=== PATIENT | male | born 1990 | race Caucasian/White ===

== ENCOUNTER 2016-07-22 21:23 | Emergency (ER) | payer OTHER ==
[2016-07-22 21:40] VITALS: BP 127/62
--- NOTE | 2016-07-22 22:13 | UC ---
Upper Extremity HPI - HPI Summary HPI Summary: The patient comes in today for: 1. Left elbow injury: Onset: six days ago. Palliative/provocative: Touch makes it worse. Quality: dull Region: Left olecranon area. Severity: 0/10 at rest, and 3/10 with hitting it. Time: Comes and goes depending on activity. Associated symptoms: FEvers: None. Previous injury: None other than occasional contusion. Numbness or weakness: None. Full range of motion: Present. Home treatment: None other than a bandage. Drainage: brown--not pus. Event: he was hit in the elbow during a [employer] game. * - History of Current Complaint Chief Complaint: UCLaceration Stated Complaint: SORE ON ELBOW Time Seen by Provider: 07/22/16 21:57 Hx Obtained From: Patient - Allergies/Home Medications Allergies/Adverse Reactions: Allergies Allergy/AdvReac Type Severity Reaction Status Date / Time Lactose Allergy GI Upset Verified 07/22/16 21:40 PMH/Surg Hx/FS Hx/Imm Hx Previously Healthy: Yes Endocrine History Of: Denies: Diabetes, Thyroid Disease, Hyperthyroidism, Hypothyroidism, Dyslipidemia Cardiovascular History Of: Denies: Cardiac Disorders, Hypertension, Pacemaker/ICD, Myocardial Infarction , Congestive Heart Failure, Atrial Fibrillation, Deep Vein Thrombosis, Bleeding Disorders Respiratory History Of: Denies: COPD, Asthma, Bronchitis, Pneumonia, Pulmonary Embolism GI/ History Of: Denies: Gastroesophageal Reflux, Ulcer, Gastrointestinal Bleed, Gall Bladder Disease, Kidney Stones, Diverticulitis, Renal Disease, Urosepsis Neurological History Of: Denies: TIA, CVA, Dementia, Seizures, Migraine Psychological History Of: Denies: Anxiety, Depression, Bipolar Disorder, Schizophrenia, Post Traumatic Stress Disorder Cancer History Of: Denies: Lung Cancer, Colorectal Cancer, Breast Cancer, Prostate Cancer, Cervical Cancer Other History Of: Negative For: HIV, Hepatitis B, Hepatitis C, Anticoagulant Therapy - Surgical History Surgical History: None - Family History Known Family History: Negative: Cardiac Disease, Hypertension - Social History Occupation: Student Alcohol Use: Occasionally Substance Use Type: None Smoking Status (MU): Never Smoked Tobacco - Immunization History Most Recent Tetanus Shot: Fall 2015 Review of Systems Constitutional: Negative Skin: Rash Eyes: Negative ENT: Negative Respiratory: Negative Cardiovascular: Negative Gastrointestinal: Negative Genitourinary: Negative All Other Systems Reviewed And Are Negative: Yes Physical Exam Triage Information Reviewed: Yes Appearance: Well-Appearing, No Pain Distress, Well-Nourished Vital Signs: Initial Vital Signs Temp 98.2 F 07/22/16 21:37 Pulse 49 07/22/16 21:37 Resp 18 07/22/16 21:37 BP 127/62 07/22/16 21:37 Pulse Ox 98 07/22/16 21:37 Vital Signs Reviewed: Yes Eyes: Positive: Conjunctiva Clear. Negative: Discharge ENT: Positive: Hearing grossly normal. Negative: Pharyngeal erythema, Nasal congestion, Nasal drainage, TM bulging, TM dull, TM red, Tonsillar swelling, Tonsillar exudate Dental: Negative: Gross Decay/Caries @, Dental Fracture @ Neck: Positive: Supple, Nontender, No Lymphadenopathy. Negative: Nuchal Rigidity Respiratory: Positive: Chest non-tender, Lungs clear, No respiratory distress, No accessory muscle use. Negative: Crackles, Wheezing Cardiovascular: Positive: RRR, No Murmur Abdomen Description: Positive: Nontender, No Organomegaly, Soft. Negative: Distended, Guarding Musculoskeletal: Positive: Strength Intact, ROM Intact, No Edema, Other: - The left olecranon bursa area revealed only minimal edema, but there was increased redness with some tenderness around a black ulcer scab. There is no discharge, but there is erythema about 1 to 1.5 cm out from the ulcer. No obvious olecranon bursa enlargemnt. Neurological: Positive: Alert, Muscle Tone Normal Psychological: Positive: Age Appropriate Behavior, Consolable Skin: Negative: rashes, breakdown Upper Extremity Course/Dx - Course Course Of Treatment: Patient was told that I was concerned that he have an early cellulitis. He wants to want on taking the antibiotic for about 1-2 days and use hot compresses, but he was told that if this did not turn things around , and particularly if he got worse, would recommend starting the antibiotic. - Differential Dx/Diagnosis Provider Diagnoses: cellulitis, left elbow skin. Discharge - Discharge Plan Condition: Stable Disposition: HOME Patient Education Materials: Cellulitis (ED) Referrals: [facility] BRINDA Esqueda [Primary Care Provider] - 3 Days (Please see [facility] after 3-4 days to see how well you are doing. If you get worse, please be seen by us or the ER for re-evaluation.)
== END 2016-07-22 22:38 | disposition home or self-care (01) ==
LOC: UCEAST 21:23
DX: E73.9 Lactose intolerance, unspecified (principal); L03.114 Cellulitis of left upper limb
CPT/HCPCS: 99202; G0463